=== PATIENT | female | born 1995 | race Caucasian/White ===

== ENCOUNTER 2018-05-14 16:23 | Emergency (ER) | payer BC ==
[2018-05-14] MEDS ORDERED: Sodium Chloride 0.9% 10 ML Syringe FLUSH PRN (16:38)
[2018-05-14] MEDS ORDERED: Ondansetron 4 MG/2 ML SDV IVPUSH ONE (16:38)
--- NOTE | 2018-05-14 16:44 | EDM.PDOC ---
ED HPI GENERAL MEDICAL PROBLEM - General Chief Complaint: General Stated Complaint: vomiting since friday, new medication metformin Time Seen by Provider: 05/14/18 16:39 Source of Information: Reports: Patient History Limitations: Reports: No Limitations - History of Present Illness INITIAL COMMENTS - FREE TEXT/NARRATIVE: Patient is a 23-year-old who was diagnosed with polycystic ovarian disease was recently started on metformin and since starting metformin has had multiple episodes of vomiting and nausea. Patient was referred to us for evaluation and treatment Onset: Gradual Duration: Day(s):, Recurring Location: Reports: Abdomen Quality: Reports: Ache Severity: Moderate Improves with: Reports: Other (Rest and by mouth) Worsens with: Reports: Eating (Eating), Other Context: Reports: Sick Contact Associated Symptoms: Reports: Nausea/Vomiting - Related Data Allergies Allergy/AdvReac Type Severity Reaction Status Date / Time No Known Allergies Allergy Verified 05/14/18 16:24 Home Meds: Home Meds Fremanezumab-Vfrm [Ajovy] 225 mg SQ ONETIME 05/14/18 [History] Rizatriptan Benzoate [Rizatriptan] 10 mg PO DAILY PRN 05/14/18 [History] metFORMIN [Glucophage XR] 250 mg PO BIDMEALS 05/14/18 [History] Social & Family History - Tobacco Use Smoking Status *Q: Never Smoker - Caffeine Use Caffeine Use: Reports: None - Recreational Drug Use Recreational Drug Use: No ED ROS GENERAL - Review of Systems Review Of Systems: ROS reveals no pertinent complaints other than HPI. ED EXAM, GENERAL - Physical Exam Exam: See Below Exam Limited By: No Limitations General Appearance: Alert, WD/WN, No Apparent Distress Ears: Normal External Exam, Normal Canal, Hearing Grossly Normal, Normal TMs Ear Exam: Bilateral Ear: Auricle Normal, Canal Normal, TM normal Nose: Normal Inspection, Normal Mucosa, No Blood Throat/Mouth: Normal Inspection, Normal Lips, Normal Teeth, Normal Gums, Normal Oropharynx, Normal Voice, No Airway Compromise Head: Atraumatic, Normocephalic Neck: Normal Inspection, Supple, Non-Tender, Full Range of Motion Cardiovascular: Normal Peripheral Pulses, Regular Rate, Rhythm, No Edema, No Gallop, No JVD, No Murmur, No Rub GI/Abdominal: Normal Bowel Sounds, Soft, Non-Tender, No Organomegaly, No Distention, No Abnormal Bruit, No Mass Back Exam: Normal Inspection, Full Range of Motion, NT Extremities: Normal Inspection, Normal Range of Motion, Non-Tender, Normal Capillary Refill, No Pedal Edema Neurological: Alert, Oriented, CN II-XII Intact, Normal Cognition, Normal Gait, Normal Reflexes, No Motor/Sensory Deficits Course - Vital Signs Last Recorded V/S: Last Vital Signs Temp 98.8 F 05/14/18 16:32 Pulse 80 05/14/18 16:32 Resp 16 05/14/18 16:32 BP 133/106 H 05/14/18 16:32 Pulse Ox 100 05/14/18 16:32 - Orders/Labs/Meds Orders: Active Orders 24 hr Category Date Time Status Sodium Chloride 0.9% [Normal Saline] 1,000 ml Med 05/14/18 16:45 Active IV ASDIRECTED Sodium Chloride 0.9% [Saline Flush] Med 05/14/18 16:38 Active 10 ml FLUSH ASDIRECTED PRN Saline Lock Insert [OM.PC] Stat Oth 05/14/18 16:37 Ordered Medication Orders Sodium Chloride (Normal Saline) 1,000 mls @ 500 mls/hr IV ASDIRECTED KEITH Last Admin: 05/14/18 17:06 Dose: 500 mls/hr Sodium Chloride (Saline Flush) 10 ml FLUSH ASDIRECTED PRN PRN Reason: Keep Vein Open Last Admin: 05/14/18 17:06 Dose: 10 ml Labs: Laboratory Tests 05/14/18 05/14/18 Range/Units 16:38 16:38 WBC 7.1 (4.0-10.2) K/uL RBC 4.78 (3.77-5.09) M/uL Hgb 12.9 (11.7-15.5) g/dL Hct 38.9 (34.0-46.0) % MCV 81.4 L (84.0-98.0) fL MCH 27.0 L (28.2-33.3) pg MCHC 33.2 (31.7-36.0) g/dL RDW 14.5 H (11.2-14.1) % Plt Count 329 (150-350) K/uL Neut % (Auto) 62.8 (45.0-80.0) % Lymph % (Auto) 30.4 (10.0-50.0) % [place] % (Auto) 5.4 (2.0-14.0) % Eos % (Auto) 1.3 (0.0-5.0) % Baso % (Auto) 0.1 (0.0-2.0) % Neut # (Auto) 4.45 (1.40-7.00) K/uL Lymph # (Auto) 2.15 (0.50-3.50) K/uL [place] # (Auto) 0.38 (0.00-1.00) K/uL Eos # (Auto) 0.09 (0.00-0.50) K/uL Baso # (Auto) 0.01 (0.00-0.20) K/uL Sodium 139 (136-145) mmol/L Potassium 3.3 L (3.5-5.1) mmol/L Chloride 102 (98-107) mmol/L Carbon Dioxide 21.8 (21.0-32.0) mmol/L BUN 10 (7-18) mg/dL Creatinine 0.82 (0.51-1.17) mg/dL Est Cr Clr Drug Dosing 89.02 mL/min Estimated GFR (MDRD) > 60 mL/min Glucose 119 H (74-106) mg/dL Calcium 9.5 (8.5-10.1) mg/dL Total Bilirubin 0.2 (0.2-1.0) mg/dL AST 20 (15-37) U/L ALT 27 (12-78) U/L Alkaline Phosphatase 54 (46-116) IU/L Total Protein 7.9 (6.4-8.2) g/dL Albumin 3.9 (3.4-5.0) g/dL Meds: Medications Generic Name Dose Route Start Last Admin Trade Name Freq PRN Reason Stop Dose Admin Sodium Chloride 1,000 mls @ 500 mls/hr 05/14/18 16:45 05/14/18 17:06 Normal Saline IV 500 mls/hr ASDIRECTED KEITH Administration Sodium Chloride 10 ml 05/14/18 16:38 05/14/18 17:06 Saline Flush FLUSH 10 ml ASDIRECTED PRN Administration Keep Vein Open Discontinued Medications Generic Name Dose Route Start Last Admin Trade Name Freq PRN Reason Stop Dose Admin Ondansetron HCl 4 mg 05/14/18 16:38 05/14/18 17:05 Zofran IVPUSH 05/14/18 16:39 4 mg ONETIME ONE Administration Departure - Departure Time of Disposition: 19:00 Disposition: Home, Self-Care 01 Condition: Fair Clinical Impression: Dehydration, Gastritis, Polycystic ovarian disease - Discharge Information Instructions: Ondansetron injection Referrals: Kat Cervantes MD [Primary Care Provider] - Forms: ED Department Discharge Care Plan Goals: CBC CMP were ordered patient will be given fluids IV and Zofran for nausea and vomiting patient to continue oral hydration with Gatorade and should eat potassium rich questionable such as oranges and tomatoes follow-up in the clinic if not better - My Orders Last 24 Hours: My Active Orders 05/14/18 16:37 Saline Lock Insert [OM.PC] Stat 05/14/18 16:38 Sodium Chloride 0.9% [Saline Flush] 10 ml FLUSH ASDIRECTED PRN 05/14/18 16:45 Sodium Chloride 0.9% [Normal Saline] 1,000 ml IV ASDIRECTED - Assessment/Plan Last 24 Hours: My Active Orders 05/14/18 16:37 Saline Lock Insert [OM.PC] Stat 05/14/18 16:38 Sodium Chloride 0.9% [Saline Flush] 10 ml FLUSH ASDIRECTED PRN 05/14/18 16:45 Sodium Chloride 0.9% [Normal Saline] 1,000 ml IV ASDIRECTED
[2018-05-14] MEDS ORDERED: Sodium Chloride 0.9% 1,000 ML IV SCH (16:45)
[2018-05-14 17:42] LABS: CHLORIDE,CL 102 mmol/L (98-107); SODIUM,NA 139 mmol/L (136-145)
== END 2018-05-14 19:05 | disposition home or self-care (01) ==
LOC: LL.ED 16:23
DX: K29.70 Gastritis, unspecified, without bleeding (principal); E86.0 Dehydration; E28.2 Polycystic ovarian syndrome; Z79.899 Other long term (current) drug therapy
CPT/HCPCS: 36415; 80053; 85025; 96361; 96374; 99284; J2405; J7030

== ENCOUNTER 2023-02-22 12:03 | Emergency (ER) | payer BC ==
[2023-02-22] MEDS: Sodium Chloride 0.9% 1,000 ML IV ONE (12:20)
[2023-02-22] MEDS: Ondansetron 4 MG/2 ML SDV IVPUSH ONE (12:21)
[2023-02-22] MEDS: Sodium Chloride 0.9% 10 ML Syringe FLUSH PRN (12:21)
[2023-02-22] MEDS: Take Home: Ondansetron 4 MG Tab.DIS, 5 Tab Pack PO ONE (13:34)
[2023-02-22 13:36] LABS: INFLUENZA A NAA NEGATIVE (NEGATIVE); INFLUENZA B NAA NEGATIVE (NEGATIVE); RESPIRATORY SYNCYTIAL VIR NAA NEGATIVE (NEGATIVE)
[2023-02-22 13:38] LABS: CORONAVIRUS COVID-19 NAA POSITIVE (NEGATIVE)
== END 2023-02-22 13:50 | disposition home or self-care (01) ==
LOC: LL.ED 12:03 → MERGE 12:03 → LL.ED 13:50
DX: O98.511 Other viral diseases complicating pregnancy, first trimester (principal); U07.1 COVID-19; Z88.8 Allergy status to other drugs, medicaments and biological substances; Z79.899 Other long term (current) drug therapy; Z3A.12 12 weeks gestation of pregnancy
CPT/HCPCS: 0241U; 96361; 96374; 99284; J2405; J7030; Q0162; J3490

== ENCOUNTER 2025-03-10 19:39 | Emergency (ER) | payer BC ==
[2025-03-10 20:03] VITALS: BP 128/72; PULSE 91
[2025-03-10] MEDS: Ketorolac 30 MG/ML SDV IVPUSH ONE (20:26)
[2025-03-10] MEDS: Ondansetron 4 MG/2 ML SDV IVPUSH ONE (20:26)
[2025-03-10] MEDS: diphenhydrAMINE 50 MG/ML SDV IVPUSH ONE (20:27)
[2025-03-10] MEDS: Sodium Chloride 0.9% 10 ML Syringe FLUSH PRN (20:28)
== END 2025-03-10 21:25 | disposition home or self-care (01) ==
LOC: LL.ED 19:39
DX: R11.2 Nausea with vomiting, unspecified (principal); F17.200 Nicotine dependence, unspecified, uncomplicated; Z88.8 Allergy status to other drugs, medicaments and biological substances; Z79.899 Other long term (current) drug therapy
CPT/HCPCS: 96361; 96374; 96375; 99283-25; J1200; J1885; J2405; J7030